=== PATIENT | male | born 1985 | race Caucasian/White ===

== ENCOUNTER 2019-11-04 02:42 | Emergency (ER) | payer OTHER ==
[~2019-11-04] VITALS: Ht 167.6 cm; Wt 70.3 kg
[2019-11-04 02:44] VITALS: Ht 167.6 cm; Wt 70.3 kg
[2019-11-04 04:54] VITALS: BP 116/82
== END 2019-11-04 04:54 | disposition home or self-care (01) ==
LOC: ED 02:42
DX: R09.1 Pleurisy (principal); R07.89 Other chest pain
CPT/HCPCS: 87804; J1885; Q0092